=== PATIENT | male | born 1985 | race Caucasian/White ===

== ENCOUNTER 2017-02-27 22:39 | Emergency (ER) | payer OTHER ==
[2017-02-27] MEDS ORDERED: TDAP ADULT 0.5 ML INJ (BOOSTRIX) IM ONE (23:13)
--- NOTE | 2017-02-28 00:14 | EDPHY ---
H & P Stated Complaint: LEFT INDEX FINGER LACERATION TO NAIL Time Seen by Provider: 02/27/17 23:06 HPI/ROS: Chief complaint: Finger laceration HPI: 31-year-old male sustained a laceration to his left index finger while working on his bike suspension. Patient states he has a laceration over his nail and his distal finger. Does not recall when his last tetanus was. No other injuries at this time. ROS: 10 point Review of Systems is negative except as noted in the HPI. Past medical history: None Medications: None Allergies: None Physical exam: General: Awake, alert, no acute distress Left hand: He has a laceration of the left index finger over the nail just superficially into the nail bed. It is not gaping. There is no bony exposure. There is no deformity. He does not have any tenderness on the palmar aspect of the nail. There is also small skin avulsion on the ulnar aspect just adjacent to the nail. Skin: No rash - Personal History Current Tetanus/Diphtheria Vaccine: Unsure Current Tetanus Diphtheria and Acellular Pertussis (TDAP): Unsure - Medical/Surgical History Hx Asthma: No Hx Chronic Respiratory Disease: No Hx Diabetes: No Hx Cardiac Disease: No Hx Renal Disease: No Hx Cirrhosis: No Hx Alcoholism: No Hx HIV/AIDS: No Hx Splenectomy or Spleen Trauma: No Other PMH: DENIES - Social History Smoking Status: Never smoked Constitutional: Initial Vital Signs Temperature (C) 36.4 C 02/27/17 22:42 Heart Rate 81 02/27/17 22:42 Respiratory Rate 22 H 02/27/17 22:42 Blood Pressure 120/74 02/27/17 22:42 O2 Sat (%) 100 02/27/17 22:42 O2 Delivery Mode Room Air Allergies/Adverse Reactions: No Known Allergies Allergy (Unverified 02/27/17 22:44) Home Medications: Medication Instructions Recorded NK [No Known Home Meds] 02/27/17 Medical Decision Making ED Course/Re-evaluation: Wound has been clear and and irrigated. There is a very superficial laceration just into the nail bed on the ulnar half of the nail which does not warrant nail removal or laceration repair. There is also skin avulsion just adjacent to that. Again this does not warrant repair at this time. Will place a nonadherent dressing. Given referral for follow-up as an outpatient. He has been given a tetanus booster here. - Data Points Medications Given: Discontinued Medications Diphtheria/Tetanus/Acell Pertussis (Boostrix) 0.5 ml IM .ONCE ONE Stop: 02/27/17 23:14 Last Admin: 02/27/17 23:20 Dose: 0.5 ml Departure - Departure Disposition: Home, Routine, Self-Care Clinical Impression: Laceration Condition: Good Instructions: Laceration Without Closure (ED), Diphtheria/Tetanus/Acellular Pertussis/Polio Vaccine (By injection) Additional Instructions: Keep the injured finger clean and dry. Follow up with primary care for any concerns. Return for increasing redness, pus from the wound, fevers or chills, or any other concerns. Referrals: NONE *PRIMARY CARE P,. [Primary Care Provider] - As per Instructions Rachael Whittington MD [Medical Doctor] - As per Instructions
[2017-02-28 00:25] VITALS: PULSE 74; RESP 16
[2017-02-28 00:33] VITALS: BP 122/77; TEMP 98.4; O2SAT 5
== END 2017-02-28 00:30 | disposition home or self-care (01) ==
DX: S61.211A Laceration without foreign body of left index finger without damage to nail, initial encounter (principal); Z23 Encounter for immunization; X58.XXXA Exposure to other specified factors, initial encounter; Y99.8 Other external cause status; Y93.89 Activity, other specified